=== PATIENT | male | born 1970 | race African-American/Black ===

== ENCOUNTER 2020-07-27 21:33 | Emergency (ER) | payer BC ==
[~2020-07-27] VITALS: Ht 177.8 cm; Wt 88.0 kg
--- NOTE | 2020-07-27 22:26 | ED.ADGEN ---
Past Medical History Past Medical History: No Pertinent History Past Surgical History: Other Additional Past Surgical Histo: SINUS SURGERY Smoking Status: Current Some Day Smoker Alcohol Use: None General Adult EDM: Chief Complaint: CHEST PAIN HPI: HPI: Patient is a 50-year-old male who presents to the emergency room complaining of arm numbness with intermittent radiation into his jaw and chest. He states that he was feeling fine earlier this evening and then went to eat some nitros. He states while eating not shows he had a couple of episodes where his arm felt like it went numb. He thought it was because he was leaning on the arm. He then developed some intermittent numbness in his chest with radiation of pain into the back and front of his neck. Is never had anything like this pre viously. He denies any shortness of breath, diaphoresis, nausea, vomiting. He has never had anything like this previously. He denies any medical history. He does have a history of smoking. He denies any trauma. Review of Systems: Review of Systems: Complete ROS is negative unless otherwise documented in HPI Current Medications: Current Medications Medications (Trade) Dose Ordered Sig/Marshall Start Time Stop Time Status Last Admin Dose Admin Aspirin (Aspirin Chewable) 324 mg 1X ONCE 07/27/20 22:30 07/27/20 22:31 DC 07/27/20 22:42 324 MG Diazepam (Valium) 5 mg 1X ONCE 07/27/20 22:30 07/27/20 22:31 DC 07/27/20 22:42 5 MG Ketorolac Tromethamine (Toradol 30mg Vial) 30 mg 1X ONCE 07/28/20 00:15 07/28/20 00:16 DC 07/28/20 00:24 30 MG Methocarbamol (Robaxin) 750 mg 1X ONCE 07/28/20 00:15 07/28/20 00:16 DC 07/28/20 00:23 750 MG Allergies: Allergies: Allergies Coded Allergies Type Severity Reaction Last Updated Verified No Known Drug Allergies 07/27/20 No Physical Exam: PE: General: Awake, alert, NAD. Well Nourished, well hydrated. Cooperative HEENT: Atraumatic, EOMI, PERRL, airway patent, moist oral mucosa Neck: Supple, trachea midline Respiratory: CTA bilaterally, normal effort, no wheezing/crackles CV: RRR, no murmur, cap refill <2 GI: Soft, nondistended, nontender, no masses MSK: No obvious deformities Skin: Warm, dry, intact Neuro: A&O x3, speech NL, sensory and motor grossly intact, no focal deficits Psych: Normal affect, normal mood, not suicidal or homicidal Current Patient Data: Labs: Laboratory Tests Test 07/27/20 21:51 07/28/20 00:33 White Blood Count 7.6 x10^3/uL (4.0-11.0) Red Blood Count 3.98 x10^6/uL (4.30-5.70) L Hemoglobin 13.9 g/dL (13.0-17.5) Hematocrit 39.5 % (39.0-53.0) Mean Corpuscular Volume 99 fL (79-100) Mean Corpuscular Hemoglobin 35 pg (25-35) Mean Corpuscular Hemoglobin Concent 35 g/dL (31-37) Red Cell Distribution Width 13.2 % (11.5-14.5) Platelet Count 262 x10^3/uL (140-400) Neutrophils (%) (Auto) 49 % (31-73) Lymphocytes (%) (Auto) 41 % (24-48) Monocytes (%) (Auto) 8 % (0-9) Eosinophils (%) (Auto) 3 % (0-3) Basophils (%) (Auto) 0 % (0-3) Neutrophils # (Auto) 3.7 x10^3/uL (1.8-7.7) Lymphocytes # (Auto) 3.1 x10^3/uL (1.0-4.8) Monocytes # (Auto) 0.6 x10^3/uL (0.0-1.1) Eosinophils # (Auto) 0.2 x10^3/uL (0.0-0.7) Basophils # (Auto) 0.0 x10^3/uL (0.0-0.2) Sodium Level 142 mmol/L (136-145) Potassium Level 3.6 mmol/L (3.5-5.1) Chloride Level 106 mmol/L (98-107) Carbon Dioxide Level 29 mmol/L (21-32) Anion Gap 7 (6-14) Blood Urea Nitrogen 13 mg/dL (8-26) Creatinine 1.0 mg/dL (0.7-1.3) Estimated GFR (Cockcroft-Gault) 96.1 Glucose Level 117 mg/dL (70-99) H Calcium Level 9.0 mg/dL (8.5-10.1) Troponin I Quantitative < 0.017 ng/mL (0.000-0.055) < 0.017 ng/mL (0.000-0.055) Laboratory Tests 07/27/20 21:51 Laboratory Tests 07/27/20 21:51 Vital Signs: Vital Signs Date Time Temp Pulse Resp B/P (MAP) Pulse Ox O2 Delivery O2 Flow Rate FiO2 07/27/20 23:05 60 120/62 (81) 97 Room Air 07/27/20 21:44 98.1 12 98.1 EKG: EKG: [] Heart Score: C/O Chest Pain: N/A Risk Factors: Risk Factors: DM, Current or recent (<one month) smoker, HTN, HLP, family history of CAD, obesity. Risk Scores: Score 0 - 3: 2.5% MACE over next 6 weeks - Discharge Home Score 4 - 6: 20.3% MACE over next 6 weeks - Admit for Clinical Observation Score 7 - 10: 72.7% MACE over next 6 weeks - Early Invasive Strategies Radiology/Procedures: Radiology/Procedures: [] Course & Med Decision Making: Course & Med Decision Making Pertinent Labs and Imaging studies reviewed. (See chart for details) Patient is a 50 year-old male who presents to the Emergency Room complaining of chest pain and left arm numbness. History is significant for intermittent pain while eating. At this time, given patient's risk factors and story there is concern for possible cardiac pathology. EKG was ordered and shows normal sinus rhythm. At this time there is no signs of STEMI, pericarditis, or unstable arrthymia on EKG. Patient has received aspirin today. CBC, BMP, troponin, CXR were ordered to evaluate for causes of chest pain including ACS, anemia, electrolyte abnormalities that can lead to arrhythmias, PTX, pneumonia, pneum omediastinum. Patient does not have any abdominal tenderness that would suggest pancreaititis or cholecystitis and does not need an abdominal work up at this time. Patient's HEART score is 3 placing the patient at low risk. It is possible this could also be cervical radiculopathy. Patient be given Valium to help with numbness to see if this improves his symptoms. He will also be given aspirin. Symptoms did improve some with initial treatment. Patient was given Robaxin and Toradol with complete resolution of symptoms. Delta troponin is negative. We will treat him for cervical radiculopathy. Did discuss with him that if his chest pain does return he should return to the emergency room for reevaluation. Patient's test results and vitals while in the ED were fully reviewed and discussed with the patient. Patient is stable and at this time does not need admission to the hospital. We have discussed strict return precautions and the importance of following up with their Primary Care Physician. Patient stated understanding and was given an opportunity to ask any questions. Patient is in agreement with plan. Dragon Disclaimer: Sierra Disclaimer: This electronic medical record was generated, in whole or in part, using a voice recognition dictation system. Departure Departure Impression: Primary Impression: Chest pain Additional Impressions: Cervical radiculopathy Arm numbness Disposition: HOME / SELF CARE / HOMELESS Condition: IMPROVED Referrals: BOLIVAR CASTANEDA DO (PCP) Patient Instructions: Cervical Radiculopathy, Chest Pain (Nonspecific) Scripts Methocarbamol (METHOCARBAMOL) 500 Mg Tablet 500 MG PO QID PRN for MUSCLE PAIN for 5 Days, #20 TAB Prov: KRISTIAN ESCAMILLA MD 07/28/20 Methylprednisolone (MEDROL) 4 Mg Tab.ds.pk 1 PKG PO UD for inflammation, #1 PKG Prov: KRISTIAN ESCAMILLA MD 07/28/20 Problem Qualifiers KRISTIAN ESCAMILLA MD Jul 27, 2020 22:26
[2020-07-27] MEDS ORDERED: ASPIRIN CHEWABLE 81 MG TABLET. PO ONE (22:30)
[2020-07-27] MEDS ORDERED: diazePAM 5 MG TABLET PO ONE (22:30)
--- NOTE | 2020-07-27 22:52 | RAD ---
EXAM: CHEST 2 VIEWS. HISTORY: Chest pain. COMPARISON: None. FINDINGS: Frontal and lateral views of the chest are obtained. There are no confluent infiltrates. There is no pneumothorax or pleural effusion. The heart is not en larged. IMPRESSION: 1. No confluent infiltrates. Electronically signed by: Ethan Gerber MD (07/27/2020 10:50 PM) [facility]
[2020-07-27 23:00] LABS: BASO % 0 % (0-3); EOS # 0.2 x10^3/uL (0.0-0.7); EOS % 3 % (0-3); HEMATOCRIT 39.5 % (39.0-53.0); HEMOGLOBIN 13.9 g/dL (13.0-17.5); LYMPH # 3.1 x10^3/uL (1.0-4.8); LYMPH % 41 % (24-48); MEAN CORPUSCULAR HEMOGLOBIN 35 pg (25-35); MEAN CORPUSCULAR HGB CONC 35 g/dL (31-37); MEAN CORPUSCULAR VOLUME 99 fL (79-100); MONO # 0.6 x10^3/uL (0.0-1.1); MONO % 8 % (0-9); NEUT # 3.7 x10^3/uL (1.8-7.7); NEUT % 49 % (31-73); PLATELET COUNT 262 x10^3/uL (140-400); RED BLOOD COUNT 3.98 x10^6/uL (4.30-5.70); RED CELL DISTRIBUTION WIDTH 13.2 % (11.5-14.5); WHITE BLOOD COUNT 7.6 x10^3/uL (4.0-11.0)
[2020-07-27 23:10] LABS: GFR 96.1; POTASSIUM 3.6 mmol/L (3.5-5.1)
[2020-07-28] MEDS ORDERED: METHOCARBAMOL 750 MG TABLET PO ONE (00:15)
[2020-07-28] MEDS ORDERED: KETOROLAC 30 MG/ML VIAL. IVP ONE (00:15)
[2020-07-28 00:35] VITALS: BP 124/65
[2020-07-28] MEDS ORDERED: METH-561 PO (01:14)
[2020-07-28] MEDS ORDERED: METH4TAB2 PO (01:14)
--- NOTE | 2020-07-28 06:23 | EKG ---
[facility] [address] [place] [address] Test Date: 2020-07-27 Test Time: 21:41:06 Pat Name: COLLEEN OVERTON Department: Room: Gender: [employer]: : 1970 Requested By: KRISTIAN ESCAMILLA Order Number: [id number] Reading MD: Measurements Intervals [place] Rate: 70 P: 38 AK: 186 QRS: 59 QRSD: 100 T: 28 QT: 368 QTc: 400 Interpretive Statements SINUS RHYTHM S1,S2,S3 PATTERN NO SPECIFIC ECG ABNORMALITIES RI6.02 No previous ECG available for comparison
== END 2020-07-28 02:11 | disposition home or self-care (01) ==
LOC: ER 21:33
DX: R07.89 Other chest pain (principal); M54.12 Radiculopathy, cervical region; R20.0 Anesthesia of skin; R68.84 Jaw pain; F17.200 Nicotine dependence, unspecified, uncomplicated
CPT/HCPCS: 36415; 71046; 80048; 84484; 85025; 93005; 96374; 99285; J1885